=== PATIENT | male | born 1980 | race Caucasian/White ===

== ENCOUNTER 2024-12-04 18:41 | Emergency (ER) | payer SELFPAY ==
[~2024-12-04] VITALS: Ht 170.2 cm; Wt 78.6 kg
[2024-12-04 18:48] VITALS: BP 145/94; PULSE 72; RESP 16; TEMP 97.8; O2SAT 99
--- NOTE | 2024-12-04 21:28 | Physician Documentation ---
History of Present Illness ~ Chief Complaint: Finger pain Stated Complaint: FINGER PAIN Time Seen by MD: 19:51 HPI This 44-year-old male presented with pain and swelling to his distal right 2nd finger present for the last four days, patient reports purulent drainage from cuticle of the nail of the finger. Patient reports no other acute symptoms or concerns including no fever. Tetanus within 5 years: No Medication Reconciliation Allergies: Coded Allergies: clarithromycin (Verified Allergy, Unknown, 12/04/24) Uncoded Allergies: PENICILLIN (Allergy, Severe, ANAPHYLAXIS, 12/04/24) SULFA (Allergy, Unknown, 12/04/24) Review of Systems ROS Finger pain as stated above in the HPI, otherwise all systems are reviewed and negative. Physical Exam Vital Signs: Temperature: 97.8, Heart Rate: 72, Respiratory Rate: 16, BP: 145/94, Pulse Oximetry: 99, Weight: 78.640 Oxygen Flow Rate: 0 Physical Exam VITALS: Reviewed and as above. GENERAL: Alert, nontoxic appearing, no apparent distress. RESPIRATORY: No increased work of breathing, no respiratory distress, speaking in full clear sentences SKIN: Erythema and swelling to the dorsal aspect of right 2nd finger at the base of the nail, swelling limited to distal to DIP joint Progress Results/Orders Results/Orders Vital Signs 12/04/24 18:48 Temp 97.8 Pulse 72 Resp 16 B/P (MAP) 145/94 Pulse Ox 99 O2 Flow Rate 0 Medical Decision Making Findings MSE performed in triage and patient returned to ED lobby by nursing staff to await available ED room. Physical exam is consistent with paronychia. Patient was placed in available ED room patient received a phone call and told registration staff that he had a family emergency he must leave for. Hand Diff Dx:Considerations: Include: Paronychia Finger Diff Dx:Considerations: Include: Abrasion, Cellulitis, Contusion, F racture, Laceration, Neurovascular injury, Subungual hematoma Departure Disposition: 07 LEFT AWOL/ELOPED Impression: Primary Impression: Paronychia of finger Qualified Codes: L03.011 - Cellulitis of right finger Referrals: NO PRIMARY CARE PROVIDER (PCP) Signature Scribe Signature: No scribe Attestation: The note accurately reflects work and decisions made by me.PORTIA Schneider 12/05/24 01:51 BRIAN AMARO Dec 04, 2024 21:28
== END 2024-12-04 20:28 | disposition left against medical advice (07) ==
LOC: ER 18:42
DX: L03.011 Cellulitis of right finger (principal); Z88.1 Allergy status to other antibiotic agents
CPT/HCPCS: 99282